=== PATIENT | male | born 1995 | race Caucasian/White ===

== ENCOUNTER 2017-02-27 10:14 | Emergency (ER) | payer OTHER ==
[2017-02-27] MEDS ORDERED: Ketorolac INJ* 60 MG/2 ML VIAL IM ONE (11:07)
[2017-02-27 12:01] VITALS: BP 117/75
--- NOTE | 2017-02-27 12:04 | RAD ---
INDICATION: Chest congestion, cough. Chest pain. Fever. COMPARISON: No relevant prior exams available on the [facility] PACS for comparison. TECHNIQUE: Dual energy PA and routine lateral views of the chest were obtained. REPORT: Elevated lung volumes may reflect obstructive lung disease or simply exuberant inspiratory effort for examination. No alveolar consolidation, focal pulmonary lesion, pleural effusion, pneumothorax. The heart, pulmonary vasculature, and mediastinal contours are unremarkable. Unremarkable soft tissue contours and osseous structures. IMPRESSION: No evidence for pneumonia. Elevated lung volumes may reflect obstructive lung disease or simply exuberant inspiratory effort for examination. Correlate with clinical assessment.
--- NOTE | 2017-02-27 12:48 | UC ---
Respiratory Complaint HPI - HPI Summary HPI Summary: FOUR DAYS OF FEVER, COUGH CONGESTION SORE THROAT AND STERNAL CHEST PAIN. NO WHEEZING. NON SMOKER. - History of Current Complaint Chief Complaint: UCRespiratory Stated Complaint: COUGH Time Seen by Provider: 02/27/17 11:00 Hx Obtained From: Patient Onset/Duration: Gradual Onset, Lasting Days, Still Present Severity Initially: Moderate Severity Currently: Moderate Pain Intensity: 0 Pain Scale Used: 0-10 Numeric Character: Cough: Productive Aggravating Factors: Exertion, Deep Breaths Alleviating Factors: Spontaneous Resolution Associated Signs And Symptoms: Positive: Fever, Chills, Pleuritic Chest Pain, Hoarseness. Negative: Wheezing, Hemoptysis, Dizziness, Calf Pain, Calf Swelling , Nasal Congestion, Sinus Discomfort - Risk Factors Cardiac Risk Factors: Negative Pseudomonas Risk Factors: Negative Tuberculosis Risk Factors: Negative - Allergies/Home Medications Allergies/Adverse Reactions: Allergies Allergy/AdvReac Type Severity Reaction Status Date / Time No Known Allergies Allergy Verified 02/27/17 11:20 PMH/Surg Hx/FS Hx/Imm Hx Previously Healthy: Yes Endocrine History Of: Denies: Diabetes, Thyroid Disease Cardiovascular History Of: Denies: Cardiac Disorders, Hypertension, Pacemaker/ICD Respiratory History Of: Denies: COPD, Asthma GI/ History Of: Denies: Ulcer, Renal Disease - Surgical History Surgical History: None - Family History Known Family History: Negative: Respiratory Disease - Social History Occupation: Student Lives: With Family Alcohol Use: None Substance Use Type: Marijuana Substance Use Comment - Amount & Last Used: rare Smoking Status (MU): Never Smoked Tobacco Review of Systems Constitutional: Fever, Chills, Fatigue Skin: Negative Eyes: Negative ENT: Negative Respiratory: Cough Cardiovascular: Chest Pain Gastrointestinal: Negative Genitourinary: Negative Motor: Negative Neurovascular: Negative Musculoskeletal: Negative Neurological: Negative Psychological: Negative All Other Systems Reviewed And Are Negative: Yes Physical Exam Triage Information Reviewed: Yes Appearance: No Pain Distress, Well-Nourished, Ill-Appearing - MILDLY, Thin Vital Signs: Initial Vital Signs Temp 100.3 F 02/27/17 10:53 Pulse 120 02/27/17 10:53 Resp 18 02/27/17 10:53 BP 103/74 02/27/17 10:53 Pulse Ox 100 02/27/17 10:53 Eye Exam: Normal Eyes: Positive: Conjunctiva Clear ENT Exam: Normal ENT: Positive: Normal ENT inspection, Hearing grossly normal, Pharynx normal, TMs normal Dental Exam: Normal Neck exam: Normal Neck: Positive: Supple, Nontender, No Lymphadenopathy Respiratory Exam: Normal Respiratory: Positive: Chest non-tender, Lungs clear, Normal breath sounds, No respiratory distress, No accessory muscle use Cardiovascular: Positive: No Murmur, Pulses Normal, Brisk Capillary Refill, Tachycardia Abdominal Exam: Normal Abdomen Description: Positive: Nontender, No Organomegaly Musculoskeletal Exam: Normal Neurological Exam: Normal Psychological Exam: Normal Skin Exam: Normal UC Diagnostic Evaluation - Laboratory O2 Sat by Pulse Oximetry: 98 Respiratory Course/Dx - Differential Dx/Diagnosis Differential Diagnosis/HQI/PQRI: Influenza, Pulmonary Embolism, Sinusitis, Other - PERICARDITIS Provider Diagnoses: TACHYCARDIA. CHEST PAIN/COUGH - Physician Notification/Consults Discussed Patient Care With: ELYSE HARVEY Time Discussed With Above Provider: 12:20 Instructed by Provider To: MD Will See In ED Discharge - Discharge Plan Condition: Stable Disposition: TRANS HIGHER LVL OF CARE FAC Referrals: Violet Chaidez MD [Primary Care Provider] -
== END 2017-02-27 12:28 | disposition short-term general hospital (02) ==
LOC: UCEAST 10:14
DX: R00.0 Tachycardia, unspecified (principal); R07.89 Other chest pain; R05 Cough
CPT/HCPCS: 71020; 93005; 99212; G0463; J1885

== ENCOUNTER → 2017-02-27 13:05 | Emergency (ER) | payer OTHER ==
[~2017-02-27 13:05] MED LIST: Acetaminophen TAB* 325 MG PO ONE; Aspirin Low Dose CHEW TAB* 81 MG PO ONE; Azithromycin TAB* 250 MG PO ONE; NS 0.9% 1000 ML* 1,000 ML IV ONE
[2017-02-27 14:17] LABS: Hematocrit 48 % (42-52); Hemoglobin 16.5 g/dl (14.0-18.0); Mean Corpuscular HGB Conc 34 g/dl (31-36); Mean Corpuscular Hemoglobin 29 pg (27-31); Mean Corpuscular Volume 84 fL (80-94); Mean Platelet Volume 9 um3 (7.4-10.4); Red Blood Count 5.76 10^6/ul (4.0-5.4); Red Cell Distribution Width 13 % (10.5-15)
[2017-02-27 14:34] LABS: Albumin 4.8 g/dL (3.2-5.2); BUN/Creatinine Ratio 20.7 (8-20); EGFR African American 155.7 (>60); Potassium 4.2 mmol/L (3.5-5.0); Total Bilirubin 1.2 mg/dL (0.2-1.0); Total Protein 7.8 g/dL (6.4-8.9)
[2017-02-27 15:11] LABS: T4 10.37 mcg/mL (6.09-12.23)
[2017-02-27 15:12] LABS: TSH (Thyroid Stimulating Horm) 1.33 mcIU/mL (0.34-5.60)
--- NOTE | 2017-02-27 18:02 | ED ---
Chioma Johnson Matthew, scribed for Ector Suero MD on 02/27/17 at 1404 . Respiratory - HPI Summary HPI Summary: A 21 y/o male presents to the ED from [facility] c/o of productive cough described as cruz/green since 02/24 and chest pain only w/ cough. Other associated symptoms include fever - since 4 days ago and palpitations - elevated HR. He denies any FHx. - History of Current Complaint Chief Complaint: EDFever Stated Complaint: FAST HEART RATE Time Seen by Provider: 02/27/17 13:51 Hx Obtained From: Patient Onset/Duration: Lasting Days, Still Present Initial Severity: Mild Current Severity: Mild Pain Intensity: 0 Character: Cough (Productive) Sputum Amount: Small Sputum Color: Green, [place] Aggravating Factor(s): Nothing Alleviating Factor(s): Nothing Associated Signs and Symptoms: Fever, Chest Pain with Cough - Allergy/Home Medications Allergies/Adverse Reactions: Allergies Allergy/AdvReac Type Severity Reaction Status Date / Time No Known Allergies Allergy Verified 02/27/17 13:09 PMH/Surg Hx/FS Hx/Imm Hx Endocrine/Hematology History: Denies: Hx Diabetes, Hx Thyroid Disease Cardiovascular History: Denies: Hx Hypertension, Hx Pacemaker/ICD Respiratory History: Denies: Hx Asthma, Hx Chronic Obstructive Pulmonary Disease (COPD) GI History: Denies: Hx Ulcer History: Denies: Hx Renal Disease Sensory History: Denies: Hx Hearing Aid Psychiatric History: Denies: Hx Panic Disorder Infectious Disease History: No Infectious Disease History: Denies: Hx Hepatitis, Hx Human Immunodeficiency Virus (HIV), History Other Infectious Disease, Traveled Outside the [place] in Last 30 Days - Family History Known Family History: Negative: Respiratory Disease - Social History Alcohol Use: None Substance Use Type: Reports: Marijuana Substance Use Comment - Amount & Last Used: rare Hx Tobacco Use: No Smoking Status (MU): Never Smoked Tobacco Review of Systems Positive: Fever Eyes: Negative ENT: Negative Positive: Palpitations - elevated HR, Chest Pain - ONLY with cough Positive: Cough - productive - cruz/green phlegm Gastrointestinal: Negative Genitourinary: Negative Musculoskeletal: Negative Skin: Negative Neurological: Negative Psychological: Normal All Other Systems Reviewed And Are Negative: Yes Physical Exam Vital Signs On Initial Exam: Initial Vitals Temp Pulse Resp BP Pulse Ox 100 F 127 16 121/68 100 02/27/17 13:09 05/17/17 13:09 02/27/17 13:09 02/27/17 13:09 02/27/17 13:09 Diagnostics - Vital Signs Vital Signs Temp Pulse Resp BP Pulse Ox 02/27/17 13:09 100 F 127 16 121/68 100 - Laboratory Lab Results: Lab Results 02/27/17 02/27/17 02/27/17 Range/Units 14:10 14:10 14:10 WBC 7.0 (3.5-10.8) 10^3/ul RBC 5.76 H (4.0-5.4) 10^6/ul Hgb 16.5 (14.0-18.0) g/dl Hct 48 (42-52) % MCV 84 (80-94) fL MCH 29 (27-31) pg MCHC 34 (31-36) g/dl RDW 13 (10.5-15) % Plt Count 194 (150-450) 10^3/ul MPV 9 (7.4-10.4) um3 Neut % (Auto) 76.3 (38-83) % Lymph % (Auto) 13.3 L (25-47) % [place] % (Auto) 8.7 (1-9) % Eos % (Auto) 0.1 (0-6) % Baso % (Auto) 1.6 (0-2) % Absolute Neuts (auto) 5.4 (1.5-7.7) 10^3/ul Absolute Lymphs (auto) 0.9 L (1.0-4.8) 10^3/ul Absolute Monos (auto) 0.6 (0-0.8) 10^3/ul Absolute Eos (auto) 0 (0-0.6) 10^3/ul Absolute Basos (auto) 0.1 (0-0.2) 10^3/ul Absolute Nucleated RBC 0.01 10^3/ul Nucleated RBC % 0.1 D-Dimer, Quantitative (Less Than 230) ng/mL Sodium 135 (133-145) mmol/L Potassium 4.2 (3.5-5.0) mmol/L Chloride 99 L (101-111) mmol/L Carbon Dioxide 27 (22-32) mmol/L Anion Gap 9 (2-11) mmol/L BUN 17 (6-24) mg/dL Creatinine 0.82 (0.67-1.17) mg/dL Est GFR ( Amer) 155.7 (>60) Est GFR (Non-Af Amer) 121.0 (>60) BUN/Creatinine Ratio 20.7 H (8-20) Glucose 83 (70-100) mg/dL Lactic Acid 1.1 (0.5-2.0) mmol/L Calcium 10.0 (8.6-10.3) mg/dL Total Bilirubin 1.20 H (0.2-1.0) mg/dL AST 16 (13-39) U/L ALT 10 (7-52) U/L Alkaline Phosphatase 61 (34-104) U/L CK-MB (CK-2) 0.6 (0.6-6.3) ng/mL Troponin I 0.00 (<0.04) ng/mL B-Natriuretic Peptide ( - 100) pg/mL Total Protein 7.8 (6.4-8.9) g/dL Albumin 4.8 (3.2-5.2) g/dL Globulin 3.0 (2-4) g/dL Albumin/Globulin Ratio 1.6 (1-3) TSH 1.33 (0.34-5.60) mcIU/mL Thyroxine (T4) 10.37 (6.09-12.23) mcg/mL 02/27/17/ Range/Units 14:10 14:10 WBC (3.5-10.8) 10^3/ul RBC (4.0-5.4) 10^6/ul Hgb (14.0-18.0) g/dl Hct (42-52) % MCV (80-94) fL MCH (27-31) pg MCHC (31-36) g/dl RDW (10.5-15) % Plt Count (150-450) 10^3/ul MPV (7.4-10.4) um3 Neut % (Auto) (38-83) % Lymph % (Auto) (25-47) % [place] % (Auto) (1-9) % Eos % (Auto) (0-6) % Baso % (Auto) (0-2) % Absolute Neuts (auto) (1.5-7.7) 10^3/ul Absolute Lymphs (auto) (1.0-4.8) 10^3/ul Absolute Monos (auto) (0-0.8) 10^3/ul Absolute Eos (auto) (0-0.6) 10^3/ul Absolute Basos (auto) (0-0.2) 10^3/ul Absolute Nucleated RBC 10^3/ul Nucleated RBC % D-Dimer, Quantitative < 200 (Less Than 230) ng/mL Sodium (133-145) mmol/L Potassium (3.5-5.0) mmol/L Chloride (101-111) mmol/L Carbon Dioxide (22-32) mmol/L Anion Gap (2-11) mmol/L BUN (6-24) mg/dL Creatinine (0.67-1.17) mg/dL Est GFR ( Amer) (>60) Est GFR (Non-Af Amer) (>60) BUN/Creatinine Ratio (8-20) Glucose (70-100) mg/dL Lactic Acid (0.5-2.0) mmol/L Calcium (8.6-10.3) mg/dL Total Bilirubin (0.2-1.0) mg/dL AST (13-39) U/L ALT (7-52) U/L Alkaline Phosphatase (34-104) U/L CK-MB (CK-2) (0.6-6.3) ng/mL Troponin I (<0.04) ng/mL B-Natriuretic Peptide 20 ( - 100) pg/mL Total Protein (6.4-8.9) g/dL Albumin (3.2-5.2) g/dL Globulin (2-4) g/dL Albumin/Globulin Ratio (1-3) TSH (0.34-5.60) mcIU/mL Thyroxine (T4) (6.09-12.23) mcg/mL Result Diagrams: 02/27/17 14:10 02/27/17 14:10 Lab Statement: Any lab studies that have been ordered have been reviewed, and results considered in the medical decision making process. - EKG 13:16 Cardiac Rate: Tachycardia - 112 bpm EKG Rhythm: Sinus Tachycardia EKG Interpretation: No ST elevations Disposition - Course Assessment/Plan: A 21 y/o male presents to the ED from [facility] c/o of productive cough described as cruz/green since 02/24 and chest pain only w/ cough. Other associated symptoms include fever - since 4 days ago and palpitations - elevated HR. He denies any FHx. Blood work WNL. CXR shows no acute pathology. EKG shows sinus tachycardia without ST elevations and the patient was febrile in the ER. The patient was given IV fluids, Tylenol and the symptoms improved. Since the patient continues to have a productive cough with cruz/greenish phlegm the patient will be discharged home on Azithromycin since the patient has Hx of asthma, productive cough and fever. The patient is feeling better he will be discharged home with PCP follow-up. The patient is A&Ox3 and hemodynamically stable. - Diagnoses Provider Diagnoses: Bronchitis Discharge - Discharge Plan Condition: Stable Disposition: HOME Prescriptions: Azithromycin TAB* [Zithromax TAB (Z-JULIANNA) 250 mg #6 tabs] 250 mg PO DAILY #4 tab Patient Education Materials: Azithromycin (By mouth), Acute Bronchitis (ED) Forms: *Work Release Referrals: Violet Chaidez MD [Primary Care Provider] - 3 Days Additional Instructions: Please follow-up with your primary care physician in 3 days. The documentation as recorded by the Chioma mackey Matthew accurately reflects the service I personally performed and the decisions made by , Ector Suero MD.
[2017-02-27 18:03] VITALS: BP 110/69
== END | disposition home or self-care (01) ==
LOC: ED 13:05
DX: J40 Bronchitis, not specified as acute or chronic (principal); R05 Cough; R07.9 Chest pain, unspecified; R50.9 Fever, unspecified; R00.2 Palpitations
CPT/HCPCS: 36415; 80053; 82553; 83605; 83880; 84436; 84443; 84484; 85025; 85379; 93005; 99282; A9270-GY